=== PATIENT | female | born 1995 | race American Indian/Alaskan Native ===

== ENCOUNTER 2022-07-30 01:04 | Emergency (ER) | payer SELFPAY ==
[2022-07-30 02:04] LABS: Basophils % (Auto) 0.6 % (0.0-1.8); Eosinophils % (Auto) 0.2 % (0.0-4.3); Hematocrit 33.4 % (30.3-42.9); Hemoglobin 10.7 gm/dl (10.1-14.3); Lymphocytes # (Auto) 1.9 K/mm3 (1.2-5.4); Lymphocytes % (Auto) 24.9 % (13.4-35.0); Mean Corpuscular HGB Conc 32 % (30-34); Mean Corpuscular Volume 81 fl (79-97); Monocytes # (Auto) 0.5 K/mm3 (0.0-0.8); Monocytes % (Auto) 7.2 % (0.0-7.3); Platelet Count 340 K/mm3 (140-440); Red Blood Count 4.13 M/mm3 (3.65-5.03); Red Cell Distribution Width 16.7 % (13.2-15.2)
[2022-07-30 02:10] LABS: Mucus,Urine FEW /HPF
[2022-07-30 02:15] LABS: Amphetamine Screen,Urine PRESUMPTIVE NEGATIVE; Benzodiazepines Screen,Urine PRESUMPTIVE NEGATIVE; Cannabinoid Screen,Urine PRESUMPTIVE NEGATIVE; Cocaine Screen,Urine PRESUMPTIVE NEGATIVE; Methadone Screen,Urine PRESUMPTIVE NEGATIVE; Opiate Screen,Urine PRESUMPTIVE NEGATIVE
[2022-07-30 02:16] LABS: Color,Urine Yellow (Yellow)
[2022-07-30 02:21] LABS: Blood Urea Nitrogen 10 mg/dL (7-17); Calcium 9.2 mg/dL (8.4-10.2); Hemolysis Index 8
[2022-07-30 02:24] LABS: BUN/Creatinine Ratio 17
[2022-07-30] MEDS ORDERED: HYDROGEN PEROXIDE 118 ML SOLUTION TP ONE (02:28)
[2022-07-30] MEDS: ACETAMINOPHEN 325 MG TAB PO ONE (03:41)
[2022-07-30] MEDS ORDERED: TETANUS,DIPH,PERTUSS(ACELL) VACCINE 0.5 ML SYRINGE IM ONE ×2 (05:03→10:40)
--- NOTE | 2022-07-30 05:06 | Emergency Department Report ---
ED Psych HPI - General Chief Complaint: Psych Stated Complaint: CUT WRIST Time Seen by Provider: 07/30/22 02:14 Source: patient Mode of arrival: Ambulatory Limitations: No Limitations - History of Present Illness Initial Comments: 27-year-old female with no significant past medical history presents to the hospital planing of suicidal ideation for the last 2 weeks. She denies any inciting factors. She thinks she has been depressed for the last 3 years but has never sought medical treatment. Patient has a history of cutting herself when she is overwhelmed emotionally. Patient cut herself several times a day on her left wrist and right thigh. Patient denies auditory visual hallucinations. Tetanus status unknown - Related Data Allergies Allergy/AdvReac Type Severity Reaction Status Date / Time No Known Allergies Allergy Verified 07/30/22 01:57 ED Review of Systems ROS: Stated complaint: CUT WRIST Other details as noted in HPI Comment: All other systems reviewed and negative ED Past Medical Hx - Past Medical History Previous Medical History?: No - Surgical History Past Surgical History?: No - Social History Smoking Status: Never Smoker Substance Use Type: None ED Physical Exam - General Limitations: No Limitations - Other Other exam information: General: No acute distress Head: Atraumatic Eyes: normal appearance ENT: Moist mucous membranes Neck: Normal appearance, no midline tenderness Chest: Clear to auscultation bilaterally CV: Regular rate and rhythm Abdomen: Soft, normal bowel sounds, nontender, nondistended, no rebound or guarding Back: Normal inspection Extremity: Normal inspection, full range of motion Neuro: Alert O x 3, no facial asymmetry, speech clear, no gross motor sensory deficit Psych: Appropriate behavior Skin: Multiple superficial lacerations to the left wrist and right thigh. Patient does have 1 deeper 5 cm horizontal laceration to the volar surface of the wrist. Subcutaneous fat exposed. No tendon exposure. Full range of motion of wrist and fingers. No active bleeding or pulsatile bleeding. ED Course Vital Signs 07/30/22 01:04 Temperature 98 F Pulse Rate 98 H Respiratory 20 Rate Blood Pressure 151/90 O2 Sat by Pulse 99 Oximetry - Laceration /Wound Repair Left Wrist Wound Location: upper extremity (Left breast) Wound Length (cm): 5 Wound's Depth, Shape: superficial, linear Wound Explored: clean Irrigated w/ Saline (ccs): 100 Betadine Prep?: No (Hydrogen peroxide) Wound Repaired With: Dermabond Layer Closure?: No Sterile Dressing Applied?: No ED Medical Decision Making - Lab Data Result diagrams: 07/30/22 01:51 07/30/22 01:51 Lab Results 07/30/22 07/30/22 07/30/22 Range/Units 01:41 01:41 01:51 WBC (4.5-11.0) K/mm3 RBC (3.65-5.03) M/mm3 Hgb (10.1-14.3) gm/dl Hct (30.3-42.9) % MCV (79-97) fl MCH (28-32) pg MCHC (30-34) % RDW (13.2-15.2) % Plt Count (140-440) K/mm3 Lymph % (Auto) (13.4-35.0) % [place] % (Auto) (0.0-7.3) % Eos % (Auto) (0.0-4.3) % Baso % (Auto) (0.0-1.8) % Lymph # (Auto) (1.2-5.4) K/mm3 [place] # (Auto) (0.0-0.8) K/mm3 Eos # (Auto) (0.0-0.4) K/mm3 Baso # (Auto) (0.0-0.1) K/mm3 Seg Neutrophils % (40.0-70.0) % Seg Neutrophils # (1.8-7.7) K/mm3 Sodium (137-145) mmol/L Potassium (3.6-5.0) mmol/L Chloride (98-107) mmol/L Carbon Dioxide (22-30) mmol/L Anion Gap mmol/L BUN (7-17) mg/dL Creatinine (0.6-1.2) mg/dL Estimated GFR ml/min BUN/Creatinine Ratio % Glucose (65-100) mg/dL Calcium (8.4-10.2) mg/dL HCG, Qual (Negative) Urine Color Yellow (Yellow) Urine Turbidity Clear (Clear) Specific [place] (Man) 1.015 (1.003-1.030) Ur Protein (Man) Negative (Negative) mg/dL Ur Ketones (Man) Negative (Negative) Ur Nitrite (Man) Negative (Negative) Ur Reducing Substances Not Reportable Urine Bilirubin (Man) Negative (Negative) Urine Ictotest Not Reportable Leukocyte Esterase (Man) Negative (Negative) Urine WBC (Auto) 1.0 (0.0-6.0) /HPF Urine RBC (Auto) 1.0 (0.0-6.0) /HPF U Epithel Cells (Auto) 1.0 (0-13.0) /HPF Urine RBC (Manual) 5+ (Negative) Urine Mucus Few /HPF Salicylates < 0.3 L (2.8-20.0) mg/dL Urine Opiates Screen Presumptive negative Urine Methadone Screen Presumptive negative Acetaminophen (10.0-30.0) ug/mL Ur Barbiturates Screen Presumptive negative Ur Phencyclidine Scrn Presumptive negative Ur Amphetamines Screen Presumptive negative U Benzodiazepines Scrn Presumptive negative Urine Cocaine Screen Presumptive negative U Marijuana (THC) Screen Presumptive negative Drugs of Abuse Note Disclamer Plasma/Serum Alcohol (0-0.07) % 07/30/22 07/30/22 07/30/22 Range/Units 01:51 01:51 01:51 WBC (4.5-11.0) K/mm3 RBC (3.65-5.03) M/mm3 Hgb (10.1-14.3) gm/dl Hct (30.3-42.9) % MCV (79-97) fl MCH (28-32) pg MCHC (30-34) % RDW (13.2-15.2) % Plt Count (140-440) K/mm3 Lymph % (Auto) (13.4-35.0) % [place] % (Auto) (0.0-7.3) % Eos % (Auto) (0.0-4.3) % Baso % (Auto) (0.0-1.8) % Lymph # (Auto) (1.2-5.4) K/mm3 [place] # (Auto) (0.0-0.8) K/mm3 Eos # (Auto) (0.0-0.4) K/mm3 Baso # (Auto) (0.0-0.1) K/mm3 Seg Neutrophils % (40.0-70.0) % Seg Neutrophils # (1.8-7.7) K/mm3 Sodium 141 (137-145) mmol/L Potassium 3.9 (3.6-5.0) mmol/L Chloride 105.1 (98-107) mmol/L Carbon Dioxide 24 (22-30) mmol/L Anion Gap 16 mmol/L BUN 10 (7-17) mg/dL Creatinine 0.6 (0.6-1.2) mg/dL Estimated GFR > 60 ml/min BUN/Creatinine Ratio 17 % Glucose 93 (65-100) mg/dL Calcium 9.2 (8.4-10.2) mg/dL HCG, Qual (Negative) Urine Color (Yellow) Urine Turbidity (Clear) Specific [place] (Man) (1.003-1.030) Ur Protein (Man) (Negative) mg/dL Ur Ketones (Man) (Negative) Ur Nitrite (Man) (Negative) Ur Reducing Substances Urine Bilirubin (Man) (Negative) Urine Ictotest Leukocyte Esterase (Man) (Negative) Urine WBC (Auto) (0.0-6.0) /HPF Urine RBC (Auto) (0.0-6.0) /HPF U Epithel Cells (Auto) (0-13.0) /HPF Urine RBC (Manual) (Negative) Urine Mucus /HPF Salicylates (2.8-20.0) mg/dL Urine Opiates Screen Urine Methadone Screen Acetaminophen 5.0 L (10.0-30.0) ug/mL Ur Barbiturates Screen Ur Phencyclidine Scrn Ur Amphetamines Screen U Benzodiazepines Scrn Urine Cocaine Screen U Marijuana (THC) Screen Drugs of Abuse Note Plasma/Serum Alcohol 0.04 (0-0.07) % 07/30/22 07/30/22 Range/Units 01:51 01:51 WBC 7.6 (4.5-11.0) K/mm3 RBC 4.13 (3.65-5.03) M/mm3 Hgb 10.7 (10.1-14.3) gm/dl Hct 33.4 (30.3-42.9) % MCV 81 (79-97) fl MCH 26 L (28-32) pg MCHC 32 (30-34) % RDW 16.7 H (13.2-15.2) % Plt Count 340 (140-440) K/mm3 Lymph % (Auto) 24.9 (13.4-35.0) % [place] % (Auto) 7.2 (0.0-7.3) % Eos % (Auto) 0.2 (0.0-4.3) % Baso % (Auto) 0.6 (0.0-1.8) % Lymph # (Auto) 1.9 (1.2-5.4) K/mm3 [place] # (Auto) 0.5 (0.0-0.8) K/mm3 Eos # (Auto) 0.0 (0.0-0.4) K/mm3 Baso # (Auto) 0.0 (0.0-0.1) K/mm3 Seg Neutrophils % 67.1 (40.0-70.0) % Seg Neutrophils # 5.1 (1.8-7.7) K/mm3 Sodium (137-145) mmol/L Potassium (3.6-5.0) mmol/L Chloride (98-107) mmol/L Carbon Dioxide (22-30) mmol/L Anion Gap mmol/L BUN (7-17) mg/dL Creatinine (0.6-1.2) mg/dL Estimated GFR ml/min BUN/Creatinine Ratio % Glucose (65-100) mg/dL Calcium (8.4-10.2) mg/dL HCG, Qual Negative (Negative) Urine Color (Yellow) Urine Turbidity (Clear) Specific [place] (Man) (1.003-1.030) Ur Protein (Man) (Negative) mg/dL Ur Ketones (Man) (Negative) Ur Nitrite (Man) (Negative) Ur Reducing Substances Urine Bilirubin (Man) (Negative) Urine Ictotest Leukocyte Esterase (Man) (Negative) Urine WBC (Auto) (0.0-6.0) /HPF Urine RBC (Auto) (0.0-6.0) /HPF U Epithel Cells (Auto) (0-13.0) /HPF Urine RBC (Manual) (Negative) Urine Mucus /HPF Salicylates (2.8-20.0) mg/dL Urine Opiates Screen Urine Methadone Screen Acetaminophen (10.0-30.0) ug/mL Ur Barbiturates Screen Ur Phencyclidine Scrn Ur Amphetamines Screen U Benzodiazepines Scrn Urine Cocaine Screen U Marijuana (THC) Screen Drugs of Abuse Note Plasma/Serum Alcohol (0-0.07) % - Medical Decision Making 27-year-old female presents to the hospital with history of chronic self harming behavior, self diagnosed depression and suicidal ideation for last 2 weeks with a left wrist laceration requiring Dermabond repair. 1013 signed. Patient requires mental health evaluation for possible inpatient psychiatric placement. Patient is medically cleared Critical Care Time: No Critical care attestation.: If time is entered above; I have spent that time in minutes in the direct care of this critically ill patient, excluding procedure time. ED Disposition Clinical Impression: Self-harming behavior, Suicidal ideation, Laceration of left wrist, Medical clearance for psychiatric admission Disposition: 30 STILL A PATIENT Is pt being admited?: No Condition: Stable Instructions: Sutures, [place], or Adhesive Wound Closure, [id number] Time of Disposition: 05:07
--- NOTE | 2022-07-30 09:21 | Consultation ---
History of Present Illness - Reason for Consult Consult date: 07/30/22 Reason for consult: suicidal ideation - History of Present Psychiatric Illness ED Note: 27-year-old female with no significant past medical history presents to the hospital planing of suicidal ideation for the last 2 weeks. She denies any inciting factors. She thinks she has been depressed for the last 3 years but has never sought medical treatment. Patient has a history of cutting herself when she is overwhelmed emotionally. Patient cut herself several times a day on her left wrist and right thigh. Patient denies auditory visual hallucinations. Tetanus status unknown. The patient is a 27 year old female with no psychiatric diagnosis who presents to the ED with suicidal ideation. The patient seen today. She is calm, alert and oriented x4. She reports ongoing depression " on and off all my whole life;" she states she has never seen a psychiatrist. She reports history of cutting " I like to inflict pain to release tension." She states recent stressor such as " Mom's anniversary just past; I have been heavy on myself." She denies any current urge to cut. The patient denies any current suicidal/homicidal ideation and denies hallucinations. PAST PSYCHIATRIC HISTORY: Diagnoses: Denies Suicide attempts or Self-harm behavior: Yes- cutting Prior psychiatric hospitalizations: Denies Substance Abuse history: Denies Previous psychiatric medications tried: Denies Outpatient treatment: Denies PAST MEDICAL HISTORY: Family Psychiatric History: None reported SOCIAL HISTORY Marital Status: Single Living Arrangements: lives alone Employment Status: employed Access to guns/weapons: Denies Education:College History of Abuse: Denies Legal History: Unknown REVIEW OF SYSTEMS Constitutional: Negative for weight loss ENT: Negative for stridor Respiratory: Negative for cough or hemoptysis All other systems reviewed and are negative MENTAL STATUS General Appearance and Behavior: age appropriate, good eye contact, cooperative, Cooperation: Cooperative Psychomotor Behavior: within normal limits Mood: depressed Affect and affective range: Congruent with stated mood Thought Process: goal directed Thought Content: Reality oriented Speech: Normal volume and Regular rate and rhythm Suicidal Ideation: Denies Homicidal Ideation: Denies HI Hallucinations: Denies Impulse Control: intact Insight and Judgment: Limited Memory: Limited Attention: Distracted Orientation: alert and oriented x4 Assessment Major depressive disorder Treatment Plan 1013 Sertraline 25mg po daily Trazodone 50mg po qhs Continue home medications The patient is to get first dose of meds prior to leaving. Benefits and possible SE were explained to patient. She verbalizes understanding. Risks, benefits and alternatives of medications discussed with the patient, questions answered and consent obtained from patient. PSYCHOTHERAPY: Supportive psychotherapy provided MEDICAL: Per primary team DELIRIUM PRECAUTIONS: Please re-orient patient frequently, keep lights on during the day, and minimize benzodiazepines and opiates as these medications could worsen patient's confusion. RD SCIENTIST: Defer to primary DISPOSITION: Recommend acute inpatient psychiatric hospitalization at this time. FOLLOW-UP: Will follow. Thank you for the consult. Please contact with any questions and/or concerns Case discussed with Dr. Gibson who agrees with current disposition Medications and Allergies Allergies Allergy/AdvReac Type Severity Reaction Status Date / Time No Known Allergies Allergy Verified 07/30/22 01:57 Mental Status Exam - Vital signs Last Vital Signs Temp 98.0 F 07/30/22 08:38 Pulse 72 07/30/22 08:38 Resp 16 07/30/22 08:38 BP 134/74 07/30/22 08:38 Pulse Ox 100 07/30/22 08:38 Results Result Diagrams: 07/30/22 01:51 07/30/22 01:51 Abnormal lab results 07/30/22 07/30/22 07/30/22 Range/Units 01:51 01:51 01:51 MCH 26 L (28-32) pg RDW 16.7 H (13.2-15.2) % Salicylates < 0.3 L (2.8-20.0) mg/dL Acetaminophen 5.0 L (10.0-30.0) ug/mL All other labs normal.
--- NOTE | 2022-07-30 11:13 | Event Note ---
Date: 07/30/22 vss , medically cleared , no events overnight , assessed by psych , recommends acute in patient
[2022-07-30] MEDS: SERTRALINE 25 MG TAB PO SCH (12:44)
[2022-07-30] MEDS ORDERED: ACETAMINOPHEN 325 MG TAB PO ONE (16:19)
[2022-07-30] MEDS ORDERED: traZODone 50 MG TAB PO SCH (22:00)
[2022-07-31] MEDS ORDERED: ACETAMINOPHEN 325 MG TAB PO ONE (08:57)
[2022-07-31] MEDS: ACETAMINOPHEN 325 MG TAB PO ONE (09:05)
[2022-07-31] MEDS: SERTRALINE 25 MG TAB PO SCH (09:36)
[2022-07-31] MEDS ORDERED: TETANUS,DIPH,PERTUSS(ACELL) VACCINE 0.5 ML SYRINGE IM ONE (10:00)
--- NOTE | 2022-07-31 11:39 | Event Note ---
Date: 07/31/22 vss, no distress awaiting psych inpt placement
[2022-07-31 13:35] VITALS: BP 134/71
== END 2022-07-31 13:48 ==
LOC: ED 01:04
DX: S61.512A Laceration without foreign body of left wrist, initial encounter (principal); R45.851 Suicidal ideations; Z13.30 Encounter for screening examination for mental health and behavioral disorders, unspecified; Z20.822 Contact with and (suspected) exposure to COVID-19; X83.8XXA Intentional self-harm by other specified means, initial encounter; Y93.89 Activity, other specified; Y92.89 Other specified places as the place of occurrence of the external cause; Y99.8 Other external cause status
CPT/HCPCS: 12002; 36415; 80048; 80307; 81001; 84703; 85025; 90471; 90715; 99285; U0003; 80320; G0480